=== PATIENT | female | born 1980 | race Caucasian/White ===

== ENCOUNTER → 2016-12-29 | Outpatient (CLI) | payer OTHER ==
--- NOTE | 2016-12-29 13:54 | US ---
EXAMINATION TYPE: US transvaginal DATE OF EXAM: 12/29/2016 1:22 PM COMPARISON: CLINICAL HISTORY: N92.1 METRORRHAGIA. Irregular menses. No pain. Tubal ligation x 2013 TECHNIQUE: Transvaginal (TV) Date of LMP: 12/29/2016, EXAM MEASUREMENTS: Uterus: 9.5 x 6.6 x 5.7 cm Endometrial Stripe: 0.8 cm Left Ovary: 3.5 x 1.9 x 1.3 cm 1. Uterus: Anteverted wnl 2. Endometrium: fluid seen in fundal region of endometrial canal 3. Right Ovary: not visualized due to overlying bowel gas 4. Left Ovary: hypoechoic nonvascular lesion - 1.3 x 1.2 x 1.2 cm Spectral, color and waveform doppler imaging shows good arterial and venous flow within the ovaries ; there is no evidence for ovarian torsion. 5. Bilateral Adnexa: wnl 6. Posterior cul-de-sac: no free fluid IMPRESSION: 1. Complex cyst left ovary. Consider short-term follow-up. 2. Small amount of endometrial fluid.
== END | disposition home or self-care (01) ==
LOC: RADUSWWP 12:57
PROVIDERS: ATTEND Obstetrics & Gynecology
DX: N83.292 Other ovarian cyst, left side (principal)
CPT/HCPCS: 76830

== ENCOUNTER 2017-04-08 21:07 | Emergency (ER) | payer OTHER ==
[2017-04-08 21:11] VITALS: BP 145/88; PULSE 77; RESP 20; TEMP 98.9
--- NOTE | 2017-04-08 21:35 | ED ---
ENT HPI - General Chief complaint: ENT Stated complaint: ear pain/injury Time Seen by Provider: 04/08/17 21:15 Source: patient, RN notes reviewed, old records reviewed Mode of arrival: ambulatory Limitations: no limitations - History of Present Illness Initial comments: This is a 36 year old female, with CC of right ear pain. Patient states she hit her right ear on wednesday, now has pain radiating down the right side of her neck. Patient denies any fever or chills. REports that she feels fullness in her ear. - Related Data Previous Rx's Medication Instructions Recorded Ibuprofen [Motrin] 600 mg PO Q6HR PRN #40 day 05/11/16 Ciprofloxacin Ophth Soln [Ciloxan 10 drops RIGHT EAR BID #1 bottle 04/08/17 0.3% Ophth Soln] guaiFENesin-DM 600/30MG [Mucinex 1 each PO Q12HR #20 tab.er.12h 04/08/17 Dm] Allergies Allergy/AdvReac Type Severity Reaction Status Date / Time No Known Allergies Allergy Verified 04/08/17 21:11 Review of Systems ROS Statement: Those systems with pertinent positive or pertinent negative responses have been documented in the HPI. ROS Other: All systems not noted in ROS Statement are negative. Past Medical History Past Medical History: No Reported History, GERD/Reflux History of Any Multi-Drug Resistant Organisms: None Reported Past Surgical History: Tubal Ligation Additional Past Surgical History / Comment(s): d&c, uterine ablation Past Psychological History: No Psychological Hx Reported Smoking Status: Current every day smoker Past Alcohol Use History: Occasional Past Drug Use History: None Reported General Exam - General Exam Comments Initial Comments: Patient is a 36 year old female, no distress. Limitations: no limitations General appearance: alert, in no apparent distress Head exam: Present: atraumatic, normocephalic, normal inspection Eye exam: Present: normal appearance, PERRL, EOMI. Absent: scleral icterus, conjunctival injection, periorbital swelling ENT exam: Present: normal exam, mucous membranes moist, other (right tm has effusion, no erythema. TM canal is erythematous, not boggy or swollen. ) Neck exam: Present: normal inspection. Absent: tenderness, meningismus, lymphadenopathy Respiratory exam: Present: normal lung sounds bilaterally. Absent: respiratory distress, wheezes, rales, rhonchi, stridor Cardiovascular Exam: Present: regular rate, normal rhythm, normal heart sounds. Absent: systolic murmur, diastolic murmur, rubs, gallop, clicks GI/Abdominal exam: Present: soft, normal bowel sounds. Absent: distended, tenderness, guarding, rebound, rigid Extremities exam: Present: normal inspection, full ROM, normal capillary refill. Absent: tenderness, pedal edema, joint swelling, calf tenderness Back exam: Present: normal inspection Neurological exam: Present: alert, oriented X3, CN II-XII intact Psychiatric exam: Present: normal affect, normal mood Skin exam: Present: warm, dry, intact, normal color. Absent: rash Course Vital Signs 04/08/17 21:08 Temperature 98.9 F Pulse Rate 77 Respiratory 20 Rate Blood Pressure 145/88 O2 Sat by Pulse 98 Oximetry Medical Decision Making - Medical Decision Making This is a 36 year old female, with CC of right ear pain. Patient states she hit her right ear on wednesday, now has pain radiating down the right side of her neck. Patient denies any fever or chills. REports that she feels fullness in her ear. Patient has mild eryteham on ear canal. Discussed patient needs to take decongestant medication. Patient should use antiobiotc ear drops as this could be early otitis externa. Patient agrees to treatment plan and will comply. Disposition Clinical Impression: Acute effusion of right ear Disposition: HOME SELF-CARE Condition: Good Instructions: Earache (ED) Additional Instructions: Advised to take the medications as directed. Follow-up with her primary care provider on Wednesday if still concern. Return to emergency department if any alarming signs or symptoms occur. Prescriptions: Ciprofloxacin Ophth Soln [Ciloxan 0.3% Ophth Soln] 10 drops RIGHT EAR BID #1 bottle guaiFENesin-DM 600/30MG [Mucinex Dm] 1 each PO Q12HR #20 tab.er.12h Referrals: David Arrieta MD [Primary Care Provider] - 1-2 days Time of Disposition: 21:33
== END 2017-04-08 21:40 | disposition home or self-care (01) ==
LOC: EC 21:07
DX: H65.191 Other acute nonsuppurative otitis media, right ear (principal); F17.200 Nicotine dependence, unspecified, uncomplicated
CPT/HCPCS: 99282

== ENCOUNTER 2017-05-30 13:43 | Emergency (ER) | payer OTHER ==
[2017-05-30 13:50] VITALS: BP 122/63; PULSE 72; RESP 18; TEMP 98.4
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
--- NOTE | 2017-05-30 14:14 | XR ---
EXAMINATION TYPE: XR finger RT DATE OF EXAM: 05/30/2017 COMPARISON: NONE HISTORY: Twisted index finger TECHNIQUE: 3 views FINDINGS: I see no fracture nor dislocation. Joint spaces are normal. IMPRESSION: Normal exam. No fracture.
== END 2017-05-30 14:43 | disposition home or self-care (01) ==
LOC: EC 13:43
DX: S63.610A Unspecified sprain of right index finger, initial encounter (principal); F17.200 Nicotine dependence, unspecified, uncomplicated; X50.1XXA Overexertion from prolonged static or awkward postures, initial encounter
CPT/HCPCS: 99283

== ENCOUNTER → 2017-07-14 | Outpatient (CLI) | payer OTHER ==
--- NOTE | 2017-07-14 14:52 | MM ---
Reason for exam: clinical finding. Baseline mammogram. History: Family history of breast cancer in paternal aunt at age 30. Took hormonal contraceptives beginning at age 20. Physical Findings: Nurse Summary: 0.5cm nodule in the right breast at 1:30, 1cm nodule in the right breast at 2 o'clock (nurse dw). [facility] Diagnostic Mammo w CAD MIGUEL ÁNGEL Bilateral CC and MLO view(s) were taken. There are scattered fibroglandular densities. No suspicious mammographic abnormality. Precautionary ultrasound will be done in the palpable areas of the right breast. These results were verbally communicated with the patient and result sheet given to the patient on 07/14/17. ASSESSMENT: Incomplete: need additional imaging evaluation, BI-RAD 0 RECOMMENDATION: Ultrasound of the right breast. (palpables)
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
== END | disposition home or self-care (01) ==
LOC: RADMAMWWP 13:36
PROVIDERS: ATTEND Family Medicine
DX: N63.10 Unspecified lump in the right breast, unspecified quadrant (principal); R92.8 Other abnormal and inconclusive findings on diagnostic imaging of breast
CPT/HCPCS: 76642; G0204